=== PATIENT | female | born 1955 | race American Indian/Alaskan Native ===

== ENCOUNTER 2017-11-25 09:06 | Outpatient (CLI) | payer OTHER ==
--- NOTE | 2017-11-25 12:57 | Cat Scan Report ---
CT ABDOMEN AND PELVIS WITH CONTRAST: 11/25/17 09:06:00 CLINICAL: Abdominal pain and bloating. COMPARISON: None. TECHNIQUE: Volumetric acquisition and 1.25 millimeter scan reconstructions after the uneventful intravenous injection of 100 cc Omnipaque 300. Consent was obtained prior to the administration of contrast. Oral contrast was also given. FINDINGS: Abdomen: Clear lung bases.Multiple benign hepatic cysts and mild hepatomegaly. The right lobe the liver measures 16 cm in length. The largest cyst straddles segments VIII, MARKEL and IVB and measures 9.7 x 8.0 x 7.0 cm. No hepatic mass. Normal bile duct status post cholecystectomy. Normal stomach, duodenum, pancreas and spleen. Normal adrenal glands and kidneys. The renal collecting systems and ureters are nondilated. Normal aorta and inferior vena cava. The small bowel is normal.Normal BURAK and and transverse colon. Diverticulosis of the left colon extending from the splenic flexure of the colon to the distal sigmoid colon. No signs of diverticulitis. An appendix is not identified. No mass, lymphadenopathy or ascites.No pneumoperitoneum. Pelvis: Absence of the uterus and normal vaginal cuff.Normal urinary bladder and rectum. Mild sigmoid diverticulosis but no diverticulitis. No pelvic mass, lymphadenopathy or fluid.Ovaries are not identified. Bone windows demonstrate no suspicious bone lesion. Remote anterior wedge compression fractures involving T12 and T1 and degenerative disc disease with vacuum disc phenomenon at T11-12, T12-L1 and L5-S1. IMPRESSION:1. Benign hepatic cysts with a dominant 9.7 cm cyst at involves both right lobe and left lobe. 2. Status post cholecystectomy. 3. Diverticulosis of descending and sigmoid colon but no diverticulitis. 4. Status post hysterectomy. 5. Remote T12 and L1 anterior wedge compression fractures and degenerative disc disease at T11-12, T12-L1, and L5-S1.
== END 2017-11-25 09:07 | disposition home or self-care (01) ==
LOC: SPVIMAG 09:06
PROVIDERS: ATTEND Internal Medicine Gastroenterology
DX: K57.30 Diverticulosis of large intestine without perforation or abscess without bleeding (principal); R16.0 Hepatomegaly, not elsewhere classified; K76.89 Other specified diseases of liver; M48.54XA Collapsed vertebra, not elsewhere classified, thoracic region, initial encounter for fracture; M51.34 Other intervertebral disc degeneration, thoracic region; M51.37 Other intervertebral disc degeneration, lumbosacral region; Z90.710 Acquired absence of both cervix and uterus; Z90.49 Acquired absence of other specified parts of digestive tract
CPT/HCPCS: 74177; Q9967